=== PATIENT | male | born 1940 | race Caucasian/White ===

== ENCOUNTER 2016-06-20 21:26 | Emergency (ER) | payer MEDICARE, MEDICAID ==
[2016-06-21 00:42] VITALS: BP 120/68
== END 2016-06-21 00:42 | disposition home or self-care (01) ==
LOC: ED 21:26
DX: M79.605 Pain in left leg (principal); G89.29 Other chronic pain; E11.9 Type 2 diabetes mellitus without complications

== ENCOUNTER 2016-06-24 16:14 | Emergency (ER) | payer MEDICARE, MEDICAID ==
[2016-06-24 18:08] LABS: BASOPHIL % 0.5 % (0-2); PLATELET COUNT 387 x10^3mcL (130-400)
[2016-06-24 18:09] LABS: RED CELL DISTRIBUTION WIDTH 15.3 % (11.5-14.5)
[2016-06-24 18:17] LABS: CHLORIDE SERUM 106 mmol/L (98-107); CREATININE SERUM 1.1 mg/dL (0.7-1.3); GLUCOSE SERUM 126 mg/dL (74-106); POTASSIUM SERUM 3.9 mmol/L (3.5-5.1); SODIUM SERUM 141 mmol/L (136-145)
[2016-06-24 18:23] LABS: ALBUMIN 3.7 g/dL (3.4-5.0); ALKALINE PHOSPHATASE 77 U/L (46-116); ALT/SGPT 32 U/L (16-63); AST/SGOT 29 U/L (15-37); TOTAL PROTEIN, SERUM 7.1 g/dL (6.4-8.2)
[2016-06-24 19:06] VITALS: BP 116/74
== END 2016-06-24 19:06 | disposition home or self-care (01) ==
LOC: ED 16:14
PROVIDERS: Emergency Medicine
DX: R07.9 Chest pain, unspecified (principal); G89.29 Other chronic pain; E11.9 Type 2 diabetes mellitus without complications
CPT/HCPCS: Q0092

== ENCOUNTER 2016-07-27 16:54 | Emergency (ER) | payer MEDICARE, MEDICAID ==
[~2016-07-27] VITALS: Ht 170.2 cm; Wt 60.8 kg
[2016-07-28 04:13] VITALS: BP 146/84
== END 2016-07-27 21:00 | disposition home or self-care (01) ==
LOC: ED 16:54
DX: S82.202A Unspecified fracture of shaft of left tibia, initial encounter for closed fracture (principal); S82.402A Unspecified fracture of shaft of left fibula, initial encounter for closed fracture; E11.9 Type 2 diabetes mellitus without complications; X58.XXXA Exposure to other specified factors, initial encounter; Y93.89 Activity, other specified; Y99.8 Other external cause status; Y92.89 Other specified places as the place of occurrence of the external cause

== ENCOUNTER 2016-08-13 18:22 | Inpatient (IN) | payer MEDICARE, MEDICAID ==
[~2016-08-13] VITALS: Ht 162.6 cm; Wt 61.5 kg
[2016-08-13 19:31] LABS: BASOPHIL % 0.6 % (0-2); PLATELET COUNT 275 x10^3mcL (130-400); RED CELL DISTRIBUTION WIDTH 13.9 % (11.5-14.5)
[2016-08-13 19:36] LABS: CALCIUM 8.8 mg/dL (8.5-10.1); CARBON DIOXIDE 27.9 mmol/L (21-32); CHLORIDE SERUM 105 mmol/L (98-107); CREATININE SERUM 1.5 mg/dL (0.7-1.3); GLUCOSE SERUM 172 mg/dL (74-106); SODIUM SERUM 140 mmol/L (136-145)
[2016-08-13 19:41] LABS: ALBUMIN 3.7 g/dL (3.4-5.0); ALKALINE PHOSPHATASE 87 U/L (46-116); ALT/SGPT 29 U/L (16-63); AST/SGOT 25 U/L (15-37); BILIRUBIN TOTAL 0.4 mg/dL (0.20-1.00); TOTAL PROTEIN, SERUM 7.4 g/dL (6.4-8.2)
[2016-08-13 19:52] LABS: C REACTIVE PROTEIN < 0.2 mg/dL (<=0.9)
[2016-08-13 19:59] LABS: CK-MB 1.9 ng/mL (0-3.6)
[2016-08-13] MEDS ORDERED: NAPROXEN375 MG (20:06)
[2016-08-13] MEDS ORDERED: LYRICA75 M1 (20:06)
[2016-08-13 20:22] LABS: ERYTHROCYTE SED RATE 19 mm/hr (0-20)
[2016-08-13 21:08] LABS: T3 TOTAL 0.78 ng/mL
[2016-08-13 21:11] LABS: FREE T4 0.98 ng/dL (0.76-1.46); FREE THYROXINE INDEX 2.5 ug/dL (1.4-4.5); T4(THYROXINE) 7.1 ug/dL (4.7-13.3)
[2016-08-13 21:16] VITALS: BP 130/53
[2016-08-13 21:18] LABS: CHOLESTEROL/HDL RATIO 4.3
[2016-08-13 21:21] VITALS: Ht 162.6 cm; Wt 61.5 kg
[2016-08-14 06:04] VITALS: BP 129/66
[2016-08-14 06:54] LABS: BASOPHIL % 0.5 % (0-2); PLATELET COUNT 245 x10^3mcL (130-400); RED CELL DISTRIBUTION WIDTH 14.1 % (11.5-14.5)
[2016-08-14 07:34] LABS: CALCIUM 8.6 mg/dL (8.5-10.1); CHLORIDE SERUM 106 mmol/L (98-107); CREATININE SERUM 1.2 mg/dL (0.7-1.3); GLUCOSE SERUM 126 mg/dL (74-106); MAGNESIUM 1.9 mg/dL (1.8-2.4); PHOSPHOROUS 3.3 mg/dL (2.5-4.9); POTASSIUM SERUM 4.3 mmol/L (3.5-5.1); SODIUM SERUM 139 mmol/L (136-145)
[2016-08-14 09:35] VITALS: BP 128/62
[2016-08-14] MEDS ORDERED: DICLOFENAC SODI75 MG PO (09:45)
[2016-08-14] MEDS ORDERED: METFORMIN HCL500 MG PO (09:45)
[2016-08-14 14:01] VITALS: BP 157/62
[2016-08-14 16:48] VITALS: BP 110/55
[2016-08-14 16:59] LABS: microscopic required? NO
[2016-08-14 17:09] LABS: urine erythrocyte NEGATIVE (NEGATIVE)
[2016-08-14 21:55] VITALS: BP 127/58
[2016-08-15 05:21] VITALS: BP 111/69
[2016-08-15 06:07] LABS: BASOPHIL % 0.3 % (0-2); PLATELET COUNT 243 x10^3mcL (130-400)
[2016-08-15 06:16] LABS: CALCIUM 8.8 mg/dL (8.5-10.1); CARBON DIOXIDE 25.1 mmol/L (21-32); CHLORIDE SERUM 105 mmol/L (98-107); CREATININE SERUM 1.1 mg/dL (0.7-1.3); GLUCOSE SERUM 111 mg/dL (74-106); SODIUM SERUM 137 mmol/L (136-145)
[2016-08-15 09:49] VITALS: BP 123/59
[2016-08-15] MEDS ORDERED: LIPI20 PO (11:46)
[2016-08-15] MEDS ORDERED: ECO81 PO (11:46)
[2016-08-15 12:11] VITALS: BP 123/59
== END 2016-08-15 13:15 | disposition home or self-care (01) | DRG 564 ==
LOC: ED 18:22 → DU 19:26 → MU 08-15 06:51
PROVIDERS: Emergency Medicine; ADMIT Family Medicine
DX: S82.202K Unspecified fracture of shaft of left tibia, subsequent encounter for closed fracture with nonunion (principal); N17.0 Acute kidney failure with tubular necrosis; S82.402K Unspecified fracture of shaft of left fibula, subsequent encounter for closed fracture with nonunion; E11.65 Type 2 diabetes mellitus with hyperglycemia; E11.51 Type 2 diabetes mellitus with diabetic peripheral angiopathy without gangrene; E78.2 Mixed hyperlipidemia; D64.9 Anemia, unspecified; Z68.23 Body mass index [BMI] 23.0-23.9, adult; Z91.14 Patient's other noncompliance with medication regimen; V89.2XXD Person injured in unspecified motor-vehicle accident, traffic, subsequent encounter
CPT/HCPCS: 83880; 84439; B4164; J3490; J7030; Q0092

== ENCOUNTER 2016-09-09 11:03 | Observation (INO) | payer MEDICARE, MEDICAID ==
[~2016-09-09] VITALS: Ht 162.6 cm; Wt 59.0 kg
[~2016-09-09 11:03] MED LIST: DICLOFENAC SODI75 MG PO; ECO81 PO; LIPI20 PO; LYRICA75 M1 PO; METFORMIN HCL500 MG PO; NAPROXEN375 MG
[2016-09-09 13:38] LABS: BASOPHIL % 0.3 % (0-2); PLATELET COUNT 247 x10^3mcL (130-400)
[2016-09-09 13:46] LABS: RED CELL DISTRIBUTION WIDTH 15.2 % (11.5-14.5)
[2016-09-09 13:54] LABS: CALCIUM 9.2 mg/dL (8.5-10.1); CARBON DIOXIDE 28.7 mmol/L (21-32); CHLORIDE SERUM 102 mmol/L (98-107); CREATININE SERUM 1.2 mg/dL (0.7-1.3); GLUCOSE SERUM 185 mg/dL (74-106); POTASSIUM SERUM 4.1 mmol/L (3.5-5.1); SODIUM SERUM 138 mmol/L (136-145)
[2016-09-09 13:59] LABS: ALBUMIN 3.9 g/dL (3.4-5.0); ALKALINE PHOSPHATASE 93 U/L (46-116); ALT/SGPT 76 U/L (16-63); AST/SGOT 34 U/L (15-37); BILIRUBIN TOTAL 0.6 mg/dL (0.20-1.00)
[2016-09-09] MEDS ORDERED: TRAMADOL HCL50 MG PO (14:41)
[2016-09-09] MEDS ORDERED: KEFLEX500 M1 PO (14:42)
[2016-09-09 15:39] VITALS: BP 139/65
[2016-09-09 16:43] LABS: MAGNESIUM 1.9 mg/dL (1.8-2.4); PHOSPHOROUS 3.3 mg/dL (2.5-4.9)
[2016-09-09 17:03] LABS: FREE T4 1.06 ng/dL (0.76-1.46); T4(THYROXINE) 8.6 ug/dL (4.7-13.3)
[2016-09-09 17:38] LABS: T3 TOTAL 0.8 ng/mL
[2016-09-09 17:51] LABS: microscopic required? NO
[2016-09-09 18:00] LABS: urine erythrocyte NEGATIVE (NEGATIVE)
[2016-09-09 21:43] VITALS: BP 130/60
[2016-09-10 06:04] VITALS: BP 126/66
[2016-09-10 06:12] LABS: BASOPHIL % 0.1 % (0-2); PLATELET COUNT 213 x10^3mcL (130-400)
[2016-09-10 06:38] LABS: CALCIUM 8.7 mg/dL (8.5-10.1); CARBON DIOXIDE 27.9 mmol/L (21-32); CHLORIDE SERUM 103 mmol/L (98-107); CREATININE SERUM 1.1 mg/dL (0.7-1.3); GLUCOSE SERUM 113 mg/dL (74-106); MAGNESIUM 1.8 mg/dL (1.8-2.4); PHOSPHOROUS 2.8 mg/dL (2.5-4.9); POTASSIUM SERUM 4.5 mmol/L (3.5-5.1); SODIUM SERUM 138 mmol/L (136-145)
[2016-09-10 10:00] VITALS: BP 105/52
[2016-09-10] MEDS ORDERED: CLINDAMYCIN HC300 MG PO (14:06)
[2016-09-10] MEDS ORDERED: LAC PO (14:06)
[2016-09-10 14:20] VITALS: BP 105/52
== END 2016-09-10 17:06 | disposition home or self-care (01) | DRG 603 ==
LOC: ED 11:03 → DU 14:44 → MU 14:44 → DU 14:44 → MU 09-10 12:42
PROVIDERS: Emergency Medicine; ADMIT Family Medicine
DX: L03.116 Cellulitis of left lower limb (principal); S82.202K Unspecified fracture of shaft of left tibia, subsequent encounter for closed fracture with nonunion; S82.402K Unspecified fracture of shaft of left fibula, subsequent encounter for closed fracture with nonunion; E11.622 Type 2 diabetes mellitus with other skin ulcer; E11.65 Type 2 diabetes mellitus with hyperglycemia; E11.51 Type 2 diabetes mellitus with diabetic peripheral angiopathy without gangrene; I16.0 Hypertensive urgency; I35.0 Nonrheumatic aortic (valve) stenosis; I05.0 Rheumatic mitral stenosis; E78.5 Hyperlipidemia, unspecified; Z68.22 Body mass index [BMI] 22.0-22.9, adult; Z87.891 Personal history of nicotine dependence; Z79.84 Long term (current) use of oral hypoglycemic drugs; V89.2XXD Person injured in unspecified motor-vehicle accident, traffic, subsequent encounter
CPT/HCPCS: 36600; 83880; 84439; G0378; J0696; J1644; J3490; J7030; Q0092

== ENCOUNTER 2016-09-18 21:22 | Emergency (ER) | payer MEDICARE, MEDICAID ==
[~2016-09-18 21:22] MED LIST changes: +CLINDAMYCIN HC300 MG PO; +KEFLEX500 M1 PO; +LAC PO; +TRAMADOL HCL50 MG PO
[2016-09-18 23:10] VITALS: BP 120/67
== END 2016-09-18 23:10 | disposition home or self-care (01) ==
LOC: ED 21:22
DX: Z46.89 Encounter for fitting and adjustment of other specified devices (principal); E11.9 Type 2 diabetes mellitus without complications; M86.9 Osteomyelitis, unspecified

== ENCOUNTER 2016-11-28 12:45 | Inpatient (IN) | payer OTHER, MEDICAID ==
[~2016-11-28] VITALS: Ht 162.6 cm; Wt 58.3 kg
[2016-11-28 14:27] LABS: BASOPHIL % 0.3 % (0-2); PLATELET COUNT 259 x10^3mcL (130-400)
[2016-11-28 14:55] LABS: CALCIUM 9.2 mg/dL (8.5-10.1); CARBON DIOXIDE 28.6 mmol/L (21-32); CHLORIDE SERUM 101 mmol/L (98-107); CREATININE SERUM 1.1 mg/dL (0.7-1.3); GLUCOSE SERUM 152 mg/dL (74-106); POTASSIUM SERUM 4.1 mmol/L (3.5-5.1); SODIUM SERUM 137 mmol/L (136-145)
[2016-11-28 14:58] LABS: AMPHETAMINE QUAL UR NONE DETECTED (NEG <=1000)
[2016-11-28 15:02] LABS: ALBUMIN 3.5 g/dL (3.4-5.0); ALKALINE PHOSPHATASE 95 U/L (46-116); ALT/SGPT 40 U/L (16-63); AST/SGOT 25 U/L (15-37); BILIRUBIN TOTAL 0.4 mg/dL (0.20-1.00); TOTAL PROTEIN, SERUM 7.9 g/dL (6.4-8.2)
[2016-11-28] MEDS ORDERED: NAPROSYN500 MG PO (15:19)
[2016-11-28] MEDS ORDERED: METFORMIN HCL500 MG PO (15:20)
[2016-11-28 16:54] VITALS: BP 152/68
[2016-11-28 16:54] LABS: CHOLESTEROL/HDL RATIO 4.1; MAGNESIUM 1.7 mg/dL (1.8-2.4); PHOSPHOROUS 2.9 mg/dL (2.5-4.9)
[2016-11-28 16:55] LABS: T3 TOTAL 0.77 ng/mL
[2016-11-28 17:00] VITALS: Ht 162.6 cm; Wt 58.3 kg
[2016-11-28 17:08] LABS: FREE T4 1.25 ng/dL (0.76-1.46); FREE THYROXINE INDEX 3.3 ug/dL (1.4-4.5)
[2016-11-28 21:22] VITALS: BP 121/54
[2016-11-28 21:25] LABS: microscopic required? NO
[2016-11-28 21:30] LABS: UA SPECIFIC GRAVITY <=1.005 (1.005-1.035); urine erythrocyte NEGATIVE (NEGATIVE)
[2016-11-29 03:31] LABS: BASOPHIL % 0.3 % (0-2); PLATELET COUNT 263 x10^3mcL (130-400)
[2016-11-29 03:48] LABS: CARBON DIOXIDE 29.8 mmol/L (21-32); CHLORIDE SERUM 104 mmol/L (98-107); CREATININE SERUM 1.1 mg/dL (0.7-1.3); GLUCOSE SERUM 126 mg/dL (74-106); MAGNESIUM 2.8 mg/dL (1.8-2.4); PHOSPHOROUS 3.4 mg/dL (2.5-4.9); POTASSIUM SERUM 4.2 mmol/L (3.5-5.1); SODIUM SERUM 139 mmol/L (136-145)
[2016-11-29 03:50] LABS: RED CELL DISTRIBUTION WIDTH 14.6 % (11.5-14.5)
[2016-11-29 06:11] VITALS: BP 109/57
[2016-11-29 08:39] VITALS: BP 96/48
[2016-11-29 14:05] VITALS: BP 110/47
[2016-11-29 21:00] VITALS: BP 94/48
[2016-11-30 05:33] VITALS: BP 131/53
[2016-11-30 06:11] LABS: BASOPHIL % 0.6 % (0-2); PLATELET COUNT 252 x10^3mcL (130-400)
[2016-11-30 06:30] LABS: RED CELL DISTRIBUTION WIDTH 14.7 % (11.5-14.5)
[2016-11-30 08:23] VITALS: BP 93/52
[2016-11-30 12:59] VITALS: BP 121/52; BP 96/50
[2016-11-30 13:12] VITALS: BP 96/50
== END 2016-11-30 13:58 | disposition home or self-care (01) | DRG 392 ==
LOC: ED 12:45 → DU 15:14
PROVIDERS: Emergency Medicine; Student in an Organized Health Care Education/Training Program; ADMIT Family Medicine
DX: K21.9 Gastro-esophageal reflux disease without esophagitis (principal); M86.9 Osteomyelitis, unspecified; E11.69 Type 2 diabetes mellitus with other specified complication; E11.65 Type 2 diabetes mellitus with hyperglycemia; E11.51 Type 2 diabetes mellitus with diabetic peripheral angiopathy without gangrene; E11.40 Type 2 diabetes mellitus with diabetic neuropathy, unspecified; E78.5 Hyperlipidemia, unspecified; E83.42 Hypomagnesemia; D64.9 Anemia, unspecified; I35.0 Nonrheumatic aortic (valve) stenosis; Z68.22 Body mass index [BMI] 22.0-22.9, adult; Z79.84 Long term (current) use of oral hypoglycemic drugs
CPT/HCPCS: 83880; 84439; 85378; J2405; J2543; J3010; J3475; J7030; Q0092; Q9967

== ENCOUNTER 2017-05-27 09:53 | Inpatient (IN) | payer MEDICARE, MEDICAID ==
[~2017-05-27] VITALS: Ht 162.6 cm; Wt 62.0 kg
[~2017-05-27 09:53] MED LIST changes: -DICLOFENAC SODI75 MG PO; +NAPROSYN500 MG PO; -TRAMADOL HCL50 MG PO
[2017-05-27 11:20] LABS: BASOPHIL % 0.6 % (0-2); PLATELET COUNT 266 x10^3mcL (130-400)
[2017-05-27 11:25] LABS: CARBON DIOXIDE 28.2 mmol/L (21-32); CHLORIDE SERUM 106 mmol/L (98-107); CREATININE SERUM 1.1 mg/dL (0.7-1.3); GLUCOSE SERUM 116 mg/dL (74-106); POTASSIUM SERUM 4.2 mmol/L (3.5-5.1); SODIUM SERUM 140 mmol/L (136-145)
[2017-05-27 11:27] LABS: RED CELL DISTRIBUTION WIDTH 15.2 % (11.5-14.5)
[2017-05-27 11:30] LABS: ALBUMIN 3.4 g/dL (3.4-5.0); ALKALINE PHOSPHATASE 94 U/L (46-116); ALT/SGPT 31 U/L (16-63); AST/SGOT 24 U/L (15-37); BILIRUBIN TOTAL 0.2 mg/dL (0.20-1.00); TOTAL PROTEIN, SERUM 7.3 g/dL (6.4-8.2)
[2017-05-27 13:03] LABS: T3 TOTAL 0.91 ng/mL
[2017-05-27 13:06] LABS: RED BLOOD CELLS 3.88 M/mm3 (4.52-5.90)
[2017-05-27 13:14] LABS: CHOLESTEROL/HDL RATIO 2.6; MAGNESIUM 1.8 mg/dL (1.8-2.4); PHOSPHOROUS 3.5 mg/dL (2.5-4.9)
[2017-05-27 13:21] LABS: TOTAL IRON BINDING CAPACITY 372 ug/dL (250-450)
[2017-05-27 13:28] LABS: FREE T4 1.1 ng/dL (0.76-1.46); FREE THYROXINE INDEX 2.6 ug/dL (1.4-4.5); T4(THYROXINE) 7.5 ug/dL (4.7-13.3)
[2017-05-27 13:29] LABS: IRON 27 ug/dL (65-170)
[2017-05-27 14:00] VITALS: BP 155/69
[2017-05-27 15:19] LABS: microscopic required? NO
[2017-05-27 15:27] LABS: urine erythrocyte NEGATIVE (NEGATIVE)
[2017-05-27 15:35] LABS: AMPHETAMINE QUAL UR NONE DETECTED (NEG <=1000)
[2017-05-27 18:15] VITALS: BP 112/48
[2017-05-27 20:24] VITALS: BP 106/44
[2017-05-28 03:38] LABS: BASOPHIL % 0.5 % (0-2); PLATELET COUNT 236 x10^3mcL (130-400)
[2017-05-28 03:44] LABS: CALCIUM 8.5 mg/dL (8.5-10.1); CARBON DIOXIDE 26.7 mmol/L (21-32); CHLORIDE SERUM 107 mmol/L (98-107); CREATININE SERUM 1.1 mg/dL (0.7-1.3); GLUCOSE SERUM 98 mg/dL (74-106); MAGNESIUM 1.6 mg/dL (1.8-2.4); PHOSPHOROUS 3.8 mg/dL (2.5-4.9); POTASSIUM SERUM 4.2 mmol/L (3.5-5.1); SODIUM SERUM 141 mmol/L (136-145)
[2017-05-28 03:47] LABS: RED CELL DISTRIBUTION WIDTH 14.6 % (11.5-14.5)
[2017-05-28 05:20] VITALS: BP 106/64
[2017-05-28 08:56] VITALS: BP 129/80
[2017-05-28 13:11] VITALS: BP 103/48
[2017-05-28 17:20] VITALS: BP 100/53
[2017-05-28 21:03] VITALS: BP 111/44
[2017-05-29 06:06] VITALS: BP 116/50
[2017-05-29 06:47] LABS: CALCIUM 8.2 mg/dL (8.5-10.1); CARBON DIOXIDE 24.3 mmol/L (21-32); CHLORIDE SERUM 105 mmol/L (98-107); CREATININE SERUM 1.1 mg/dL (0.7-1.3); GLUCOSE SERUM 101 mg/dL (74-106); MAGNESIUM 1.9 mg/dL (1.8-2.4); PHOSPHOROUS 3.1 mg/dL (2.5-4.9); POTASSIUM SERUM 4.1 mmol/L (3.5-5.1); SODIUM SERUM 137 mmol/L (136-145)
[2017-05-29 07:16] LABS: BASOPHIL % 0.1 % (0-2); PLATELET COUNT 224 x10^3mcL (130-400); RED CELL DISTRIBUTION WIDTH 14.4 % (11.5-14.5)
[2017-05-29 07:48] VITALS: BP 106/48
[2017-05-29 08:51] VITALS: BP 102/52
[2017-05-29] MEDS ORDERED: FERROUS SULFAT325 M2 PO (09:06)
[2017-05-29] MEDS ORDERED: VITC PO (09:07)
[2017-05-29 10:08] VITALS: Ht 162.6 cm; Wt 62.0 kg
[2017-05-29] MEDS ORDERED: TRAMADOL HCL50 MG PO (10:40)
[2017-05-29] MEDS ORDERED: DICLOFENAC SODI75 MG PO (10:40)
[2017-05-29 10:41] VITALS: BP 102/52
== END 2017-05-29 11:30 | disposition home or self-care (01) | DRG 683 ==
LOC: ED 09:53 → DU 11:50
PROVIDERS: Emergency Medicine; Family Medicine Sports Medicine
DX: N17.0 Acute kidney failure with tubular necrosis (principal); I42.2 Other hypertrophic cardiomyopathy; R07.89 Other chest pain; K21.9 Gastro-esophageal reflux disease without esophagitis; M19.90 Unspecified osteoarthritis, unspecified site; E78.5 Hyperlipidemia, unspecified; E11.65 Type 2 diabetes mellitus with hyperglycemia; D64.9 Anemia, unspecified; Z95.5 Presence of coronary angioplasty implant and graft; Z98.42 Cataract extraction status, left eye; Z98.41 Cataract extraction status, right eye; Z79.82 Long term (current) use of aspirin; Z79.899 Other long term (current) drug therapy; Z79.84 Long term (current) use of oral hypoglycemic drugs; Z83.3 Family history of diabetes mellitus; I44.7 Left bundle-branch block, unspecified; I25.10 Atherosclerotic heart disease of native coronary artery without angina pectoris; I35.0 Nonrheumatic aortic (valve) stenosis
CPT/HCPCS: 83880; 84439; 87804; J0696; J1200; J3475; J7030; J7613; J7644; Q0092

== ENCOUNTER 2019-03-08 11:39 | Emergency (ER) | payer BC, MEDICAID ==
[~2019-03-08] VITALS: Ht 167.6 cm; Wt 53.5 kg
[~2019-03-08 11:39] MED LIST changes: +DICLOFENAC SODI75 MG PO; +FERROUS SULFAT325 M2 PO; +TRAMADOL HCL50 MG PO; +VITC PO
[2019-03-08 12:06] VITALS: Ht 167.6 cm; Wt 53.5 kg
[2019-03-08 15:23] VITALS: BP 135/65
== END 2019-03-08 16:05 | disposition home or self-care (01) ==
LOC: ED 11:39
DX: S82.292K Other fracture of shaft of left tibia, subsequent encounter for closed fracture with nonunion (principal); S82.402G Unspecified fracture of shaft of left fibula, subsequent encounter for closed fracture with delayed healing; E11.9 Type 2 diabetes mellitus without complications; M86.9 Osteomyelitis, unspecified; Z88.1 Allergy status to other antibiotic agents; X58.XXXD Exposure to other specified factors, subsequent encounter
CPT/HCPCS: Q0092